=== PATIENT | male | born 1980 | race Caucasian/White ===

== ENCOUNTER 2022-03-15 09:54 | Outpatient (CLI) | payer OTHER | END 2022-03-15 23:59 | disposition home or self-care (01) | LOC: RAD 09:54 | PROVIDERS: ATTEND Chiropractor | DX: S46.811A Strain of other muscles, fascia and tendons at shoulder and upper arm level, right arm, initial encounter (principal); X58.XXXA Exposure to other specified factors, initial encounter; Y93.89 Activity, other specified; Y92.89 Other specified places as the place of occurrence of the external cause; Y99.8 Other external cause status | CPT/HCPCS: 73030 ==